=== PATIENT | female | born 1970 | race Caucasian/White ===

== ENCOUNTER → 2018-02-23 14:18 | Outpatient (CLI) | payer BC, SELFPAY ==
[2018-02-28 13:39] LABS: HPV Reflexed? NOT INDICATED
== END ==
PROVIDERS: Visit Provider Obstetrics & Gynecology
DX: Z12.4 Encounter for screening for malignant neoplasm of cervix (principal)
CPT/HCPCS: 88175; G0145

== ENCOUNTER 2022-10-04 12:57 | Emergency (ER) | payer OTHER, SELFPAY ==
[2022-10-04 12:57] VITALS: BP 143/94
[2022-10-04 12:58] VITALS: PULSE 98; RESP 16; TEMP 36.6; O2SAT 100; BMI 39.4
--- NOTE | 2022-10-04 13:11 | RAD_ITS ---
HISTORY: trauma. TECHNIQUE: XR Ankle Min 3 Views. COMPARISON: None. FINDINGS: BONES : Oblique or spiral fracture of the distal fibula with mild posterior displacement. Mineralization unremarkable. JOINTS: Mild widening of the ankle mortise medially. Mild joint effusion. SOFT TISSUES: Moderate soft tissue swelling. RAD/Ankle min 3 Views IMPRESSION: Acute fracture of the right distal fibula with mild subluxation and widening of the ankle mortise. Electronically Signed: Ursula Cheung MD at 13:45 EDT ,
--- NOTE | 2022-10-04 13:11 | ED.VIS.LOWEX ---
HPI History of Present Illness HPI Narrative: 52-year-old female history of anxiety and depression. Was walking down steps and twisted her right ankle. Denies any injury. Complaining of significant pain. Brought in by squad. Splinted by them. Treated with IV fentanyl prior to arrival. She did not hit her head. Chief Complaint: Lower Extremity Injury Informant: patient and spouse/S.O. Occured/Mechanism Mechanism/Context: Yes injury and Yes blunt trauma Onset/Context/Timing Onset: Today Context: Sudden Onset Timing: Continuous Quality of Pain: Sharp and Stabbing Current Severity: Severe Maximum Severity: Severe Associated Symptoms Associated Symptoms: Negative for Parasthesia, Weakness or Loss of Funtion Narrative Narrative: 50-year-old female history of anxiety depression twisted her right ankle coming down steps complaining of moderate to severe pain in her right ankle. Brought in by squad. Splinted. Treated with IV fentanyl prior to arrival. Denies other injuries. Prior similar symptoms: No Recent Illness/Hospitalization: No PFSH PFSH Home Medications Cyanocobalamin/Fa/Pyridoxine [Folgard] 1 ea PO DAILY 09/15/14 [History Last Taken Unknown] aspirin 81 mg chewable tablet 81 mg PO DAILY@0800 09/15/14 [History Last Taken Unknown] hydrocodone-acetaminophen 5-325mg 5mg-325mg 1 - 2 tab PO Q4H PRN PRN Pain ##20 09/15/14 [Rx Last Taken Unknown] naproxen 500 mg tablet 500 mg PO BID #20 tabs 09/15/14 [Rx Last Taken Unknown] orphenadrine citrate 100 mg tablet,extended release 100 mg PO BID ##14 09/15/14 [Rx Last Taken Unknown] hydrocodone-acetaminophen 5-325mg 5mg-325mg 1 tab PO Q4H PRN pain 5 days #20 tabs 10/04/22 [Rx Last Taken Unknown] Allergy/AdvReac Type Severity Reaction Status Date / Time acetaminophen Allergy Rash Verified 10/04/22 12:57 [From Darvocet-N] Penicillins Allergy Rash Verified 10/04/22 12:57 propoxyphene napsylate Allergy Rash Verified 10/04/22 12:57 [From Darvocet-N] Social History Smoking Status: Never smoker ROS ROS ED ROS Narrative Denies recent illness. Review of Systems ROS Unobtainable: Denies due to encephalopathy Constitutional Constitutional ED: Denies chills or fever(s) Eyes Eyes: Denies blurry vision ENT ENT ED: Denies ear pain Cardiovascular Cardiovascular: Denies chest pain Respiratory/Chest Respiratory/Chest: Denies cough or dyspnea Gastrointestinal Gastrointestinal: Denies abdominal pain Genitourinary Genitourinary ED: Denies dysuria or hematuria Musculoskeletal Musculoskeletal: Denies arthralgias Integumentary Denies abscess Neurologic Neurologic: Denies headache(s) Psychiatric Psychiatric: Denies anxiety or depression Endocrine Endocrinology: Denies polydipsia or polyphagia Hematologic/Lymphatic Hematologic/Lymphatic: Denies easy bleeding Allergic/Immunologic Allergic/Immunologic ED: Denies mouth swelling EXAM Physical Exam Narrative Exam Narrative: 52-year-old female lying in bed splinted. Complaining of right ankle pain. Vital signs are stable afebrile. She does not look septic toxic. H EENT exam unremarkable atraumatic. Pupils round reactive light. Nontender face and scalp. C-spine and trachea nontender. Back nontender. Lungs clear. Heart regular rhythm. Rate about 100. No murmur. Chest wall and ribs nontender. Abdomen soft nontender. No peritoneal signs. Pelvic girdle intact. Both upper extremities have normal range of motion. Nontender no deformity. 5-5 director of sports performance strength. Left lower extremity is nontender with normal range of motion. We were able to take the splint off the right lower leg. The right hip thigh knee at upper and lower leg are nontender. She has swelling and tenderness on the lateral aspect of her right ankle. Medial malleolus has no significant swelling. Normal DP pulse. Able to wiggle her toes. Achilles tendon intact. Normal touch sensation. Skin intact. Const Vital Signs: 10/04/22 12:58 Temperature 97.8 F Temperature Source Temporal Pulse Rate 98 Respiratory Rate 16 Pulse Ox 100 Oxygen Delivery Method Room Air Positive well nourished and well developed; Negative for cachectic, contractures or unkempt General Appearance ED: well developed and NAD; Negative for unkempt, cachectic or contractures Nutritional Appearance: Negative for cachectic HEENT Reports moist mucous membranes normocephalic and atraumatic; Negative for trauma or tenderness Eyes PERRL General Eye ED: Negative for other Neck full ROM and supple Thyroid: Negative for tender Lymph Lymphatic: Negative for other Chest Wall inspection of chest normal and palpation of chest normal Chest: Negative for other Resp normal respiratory effort, no retractions and clear to auscultation bilaterally Effort and Inspection: Negative for pain with movement Auscultation: Negative for rales, rhonchi or wheezes Cardio regular rate, regular rhythm, S1 normal heart sound, S2 normal heart sound and no murmurs Rate: Negative for bradycardia Rhythm: Negative for abnormal rhythm GI non-tender, non-distended and no masses Inspection: Negative for abdominal distention Auscultation: normoactive bowel sounds Palpation: soft; Negative for tender or guarding Back/Spine no CVA tenderness General Back: Negative for CVA tenderness Cervical Spine: Negative for cervical spine tenderness Thoracic Spine / Upper Back: Negative for thoracic spinal tenderness Lumbar Spine / Lower Back: Negative for lumbar spinal tenderness Extremity normal to inspection and full ROM Extremity Narrative: Except right ankle laterally tender, swollen. Normal DP pulse. Foot nontender. Neurovascular intact with normal touch sensation and cap refill. Skin intact. Achilles tendon intact. Proximal tib-fib and knee are nontender. Right thigh and hip are nontender. General Extremety ED: Yes edema; Negative for cyanosis or weight-bearing difficulty General Extremity: edema; Negative for cyanosis or weight-bearing difficulty Neuro oriented x3, CN's II-XII intact bilaterally and no sensory deficits noted Sensorium / Orientation: alert, oriented to person, oriented to place and oriented to time; Negative for orientation impaired, confused, lethargic or stuporous Motor Exam: strength 5/5 throughout Psych Appearance: Negative for unkempt Speech: No other Mood & Affect: anxious Skin no wounds Lesions: no lesions Rashes: no rashes Trauma: Negative for abrasion, laceration or puncture MDM MDM MDM Narrative Medical decision making narrative: 32-year-old female twisted her right ankle coming down steps. Ankle fracture versus sprain. Treated with morphine IV for pain. Obtaining x-rays. History & Record Review Discussion w/independent historian: EMS personnel, Patient and Family Radiography Diagnostic Testing: Clinical Impression(s) from Imaging Studies Ankle X-Ray 10/04/22 13:11 IMPRESSION: Acute fracture of the right distal fibula with mild subluxation and widening of the ankle mortise. Electronically Signed: Ursula Cheung MD at 13:45 EDT , Right ankle x-ray, 3 views, interpreted by myself shows nondisplaced fracture of the distal fibula at the ankle joint. Also read by the radiologist. Procedures Lower Extremity Splints Lower Extremity Splint: Orthoglass Splint Fabrication: Fabricated Location: Right (Patient placed in a well-padded, posterior splint of Ortho-Glass.) Discharge Plan Triage Chief Complaint: Lower Extremity Injury ED Provider: Joaquin Ferguson Dx/Rx/DC Orders Clinical Impression: Fall, Ankle fracture Instructions: ED Ankle Fracture Prescriptions: New hydrocodone-acetaminophen 5-325 mg tablet 1 tab PO Q4H PRN (Reason: pain) 5 Days Qty: 20 0RF No Action aspirin 81 MG tablet,chewable 81 mg PO DAILY@0800 Cyanocobalamin/Fa/Pyridoxine [Folgard] 1 EACH tablet 1 ea PO DAILY naproxen 500 MG tablet 500 mg PO BID Qty: 20 0RF hydrocodone-acetaminophen 1 TABLET tablet 1 - 2 tab PO Q4H PRN PRN (Reason: Pain) Qty: 20 0RF orphenadrine citrate 100 MG tablet 100 mg PO BID Qty: 14 0RF Primary Care Provider: Armando Dejesus Referrals: Benji Ryan, [Med Staff - Active Staff] - As soon as possible Care Physician,No Primary [Non-Staff] - Activity Restrictions/Additional Instructions: Your ankle is in a splint. No weightbearing. Keep the splint dry and clean. Ice and elevate. To decrease pain and swelling. Motrin for pain and inflammation. [place] for pain. Do not drink or drive while using the pain medication. Plenty of fluids and fiber to prevent constipation. Call and follow-up with orthopedic physician on-call or one of your choice. Dr. Benji Ryan of which orthopedics is on-call today. Disposition Disposition: Home, Self Care
[2022-10-04] MEDS: Ondansetron 4 MG/2 ML Vial IV (13:20)
[2022-10-04] MEDS: morphine 8 MG/ML Syringe IV (13:20)
[2022-10-04 14:01] VITALS: BP 133/64; PULSE 78; RESP 14; TEMP 36.4; O2SAT 99
[2022-10-04] MEDS: Ketorolac 30 MG/ML Syringe IV (14:25)
== END 2022-10-04 14:37 | disposition home or self-care (01) ==
PROVIDERS: Emergency Provider Emergency Medicine; PCP Family Medicine; Visit Provider Emergency Medicine
DX: S82.891A Other fracture of right lower leg, initial encounter for closed fracture (principal); W10.9XXA Fall (on) (from) unspecified stairs and steps, initial encounter
CPT/HCPCS: 29515; 73610; 96374; 96375; 99285; A4216; J2405